=== PATIENT | male | born 1975 | race Caucasian/White ===

== ENCOUNTER 2017-10-28 15:54 | Emergency (ER) | payer SELFPAY ==
[~2017-10-28] VITALS: Ht 182.9 cm; Wt 103.3 kg
[2017-10-28 18:36] LABS: HEMATOCRIT 44.3 % (38.0-50.0); HEMOGLOBIN 15.8 G/DL (12.5-16.6); MCH 34.3 PG (29.0-34.0); MCHC 35.7 G/DL (30.0-36.0); MCV 96.3 FL (86-99); PLATELET COUNT 242 K/uL (156-360); RBC DIS.WIDTH-CV 11.9 % (11.8-14.6); RBC DIS.WIDTH-SD 41.9 % (39-53); WHITE BLOOD COUNT 6.3 K/uL (4.1-10.2)
[2017-10-28 18:44] LABS: ALBUMIN 4.8 g/dL (3.2-4.8); CHLORIDE 100 mEq/L (99-109); POTASSIUM 4.3 mEq/L (3.7-5.4); SODIUM 135 mEq/L (136-147)
[2017-10-28 18:46] LABS: GLUCOSE 103 mg/dL (70-99)
[2017-10-28 18:47] LABS: TOTAL PROTEIN 8.2 g/dL (6.4-8.3)
[2017-10-28 18:48] LABS: TOTAL BILIRUBIN 0.6 mg/dL (0.0-1.0)
[2017-10-28 18:50] LABS: ALKALINE PHOSPHATASE 28 IU/L (3-129); ERTH.SED.RATE 20 MM/HR (0-15); GFR ESTIMATE (CALCULATED) > 59 mL/min/ (58.99-99999)
[2017-10-28 18:51] LABS: UREA NITROGEN (BUN) 13 mg/dL (9-23)
[2017-10-28 18:52] LABS: AST (GOT) 41 IU/L (2-34)
[2017-10-28 18:53] LABS: ALT (GPT) 91 IU/L (3-49)
[2017-10-28 19:17] LABS: C-REACTIVE PROTEIN 4.5 MG/L (0-10)
[2017-10-28 22:01] VITALS: BP 149/104
== END 2017-10-28 22:05 | disposition home or self-care (01) ==
LOC: EME 15:54
PROVIDERS: Nurse Practitioner Family
DX: H53.8 Other visual disturbances (principal); I10 Essential (primary) hypertension; Z56.0 Unemployment, unspecified; R74.8 Abnormal levels of other serum enzymes; F10.99 Alcohol use, unspecified with unspecified alcohol-induced disorder; Z72.0 Tobacco use
CPT/HCPCS: 70470; 80053; 85027; 85652; 86140; 99281; 99284